=== PATIENT | female | born 1995 | race Caucasian/White ===

== ENCOUNTER → 2016-07-13 | Outpatient (CLI) | payer OTHER | LOC: LAB SRH 11:03 | DX: Z00.00 Encounter for general adult medical examination without abnormal findings (principal); R63.5 Abnormal weight gain | CPT/HCPCS: 90100; 90364; 92863; 93140; 95059 ==

== ENCOUNTER 2016-11-15 09:25 | Outpatient (CLI) | payer SELFPAY | END 2016-11-15 23:00 | LOC: LAB SRH 09:25 | DX: Z01.84 Encounter for antibody response examination (principal) | CPT/HCPCS: 90074; 90077; 90229; 90248; 90851; 91832 ==